=== PATIENT | male | born 1935 | race Caucasian/White ===

== ENCOUNTER 2017-02-22 08:50 | Emergency (ER) | payer BC ==
--- NOTE | ~2017-02-22 | CR72 ---
[facility] A Service of [facility] RADIOLOGY TEXT RESULTS PATIENT: SOLE EUGENE LOCATION: [facility] : 33 UNIT #: [id number] AGE: [address]: Yvrose Chun MD SEX: M ORDER DR: [id number] [facility] [address] [place], [place] [address] [id number] MR#: [id number] Acc #: [id number] NAME: SOLE EUGENE : 1935 SEX: M STUDY DATE/TIME: 02/22/2017 8:34 UNIT: [facility] ROOM: STUDY DESCRIPTION: CR Chest Single View Portable Attending Physician: Yvrose Chun M.D. Ordering Physician: Yvrose Chun M.D. Primary Care Physician: Josue Pringle M.D. MEDICAL IMAGING REPORT This report is preliminary unless electronic signature is present EXAM Portable chest 02/22/2017 HISTORY Fall. Pain low left rib. FINDINGS AP radiographs of chest presented. Comparison 09/18/2016. Cervical spine fixation hardware unchanged in visualized extent. Grossly intact. Degenerative changes in spine. Contour irregularity anterolateral right fourth rib. Not clearly present on prior examination. This may represent a rib fracture. It is of unclear chronicity. I would favor healed rib fracture. Correlate with mechanism of patient's injury and location of patient pain. If it would assist in management, right rib series could be pursued for further assessment. No other potential acute bony abnormality is seen. The heart is mildly enlarged. Thoracic aorta is tortuous. Lungs are well inflated. Linear atelectasis at the left lung base. Slight blunting left lateral costophrenic sulcus could be a reflection of mild atelectasis or trace effusion. There is no sizable effusion. Apical pleural thickening stable. Dictated by... Дмитрий Sapp M.D. THIS IS AN ELECTRONICALLY VERIFIED REPORT Дмитрий Sapp M.D. at 02/23/2017 1:54 PM GILLIAN/isaiah TD: 02/22/2017 11:00 [facility] A Service of [facility] & [facility] RADIOLOGY TEXT RESULTS PATIENT: SOLE EUGENE LOCATION: [facility] #: [id number] : 33 UNIT #: [id number] AGE: [address]: Yvrose Chun MD SEX: M ORDER DR: JOB #: [id number] MEDICAL IMAGING REPORT Page 1 of 1 COPY
[~2017-02-22 08:50] MED LIST: ACTONEL150 MG PO; DITROPAN PO; DITROPAN X10 MG/BOTT PO; METANX TABLET1 TAB PO; MILK THISTLE500 MG PO; MIRAPEX PO; MIRAPEX0.25 MG PO; MIRTAZAPINE30 MG PO; MONTELUKAST SOD10 MG PO; MULTI-DAY VITAM1 TAB PO; NEURONTIN100 MG PO; PLAVIX PO; TOPROL XL 50 MG50 MG PO; VICODIN 5-3001 EACH PO; VITAL-D RX TABL1 TAB; VITAMIN B12-FO1 EACH PO; VITAMIN B650 M1 PO; VITAMIN D32000 UNI1 PO; ZOLOFT50 MG PO
[2017-02-22 09:28] LABS: BASOPHIL% 0.3 % (0-2.5); EOSINOPHIL# 0.1 X10e3 (0-0.7); EOSINOPHIL% 2.2 % (0.0-7.0); HEMOGLOBIN 12.8 gm/dL (13.0-16.0); LYMPHOCYTE% 15.2 % (17.0-45.0); MEAN CELL VOLUME 88.9 FL (83-96); MEAN CORPUSCULAR HEMOGLOBIN 29.1 PG (28-34); MEAN CORPUSCULAR HGB CONC 32.7 g/dL (30-36); MEAN PLATELET VOLUME 7.9 FL (6.5-11.5); MONOCYTE# 0.5 X10e3 (0-1.0); MONOCYTE% 7.7 % (3.0-12.0); NEUTROPHIL# 4.9 X10e3 (1.5-7.1); NEUTROPHIL% 74.6 % (40-75); PLATELET COUNT 119 X10e3 (140-420); RED BLOOD COUNT 4.38 X10e (3.90-5.60); RED CELL DISTRIBUTION WIDTH 15.9 % (11.0-15.5); WHITE BLOOD COUNT 6.6 X10e3 (4.0-10.5)
[2017-02-22 09:30] LABS: DIFF IND NO
[2017-02-22 10:08] LABS: ALBUMIN SERUM 3.5 g/dL (3.5-5.0); BILIRUBIN, DIRECT 0.1 mg/dL (0.0-0.2); BILIRUBIN,INDIRECT 0.4 mg/dL (0.0-0.9); BILIRUBIN,TOTAL 0.5 mg/dL (0.2-2.0); CALCIUM SERUM 8.8 mg/dL (8.4-10.2); CREATININE SERUM 0.8 mg/dL (0.6-1.4); GLOM FILT RATE Estimated 82.6 mL/min (>60); POTASSIUM 3.7 mmol/L (3.5-5.1); PROTEIN TOTAL SERUM 6.5 g/dL (6.0-8.3)
[2017-02-22 10:40] LABS: URINE SOURCE CLEAN CATCH
[2017-02-22 10:49] LABS: URINE APPEARANCE CLEAR; URINE BILIRUBIN NEG (NEG); URINE BLOOD TRACE (NEG); URINE COLOR YELLOW; URINE GLUCOSE NEG (NEG); URINE KETONE NEG (NEG); URINE LEUKOCYTE ESTERASE 2+ (NEG); URINE NITRATE NEG (NEG); URINE PROTEIN NEG (NEG); URINE SPECIFIC GRAVITY 1.019 (1.003-1.035); URINE UROBILINOGEN 0.2 MG/DL (NEG)
[2017-02-22 10:50] LABS: CULTURE INDICATED? YES; URINE BACTERIA AUWI NEG (NEGATIVE); URINE SQUAMOUS EPITHELIAL CELL OCC /[HPF]
[2017-02-22 11:05] LABS: URINE MUCUS PRESENT; URINE YEAST PRESENT
== END 2017-02-22 12:40 | disposition home or self-care (01) ==
LOC: CED 08:50
PROVIDERS: Emergency Medicine
DX: S20.212A Contusion of left front wall of thorax, initial encounter (principal); J18.9 Pneumonia, unspecified organism; N39.0 Urinary tract infection, site not specified; I10 Essential (primary) hypertension; K21.9 Gastro-esophageal reflux disease without esophagitis; Z98.890 Other specified postprocedural states; W01.198A Fall on same level from slipping, tripping and stumbling with subsequent striking against other object, initial encounter; Y92.9 Unspecified place or not applicable
CPT/HCPCS: 71010; 80048; 80076; 81003; 85025; 87086; 94010; 96372; 99283; J0696

== ENCOUNTER 2017-02-25 21:25 | Inpatient (IN) | payer OTHER ==
--- NOTE | ~2017-02-25 | CT15 ---
[facility] A Service of [facility] RADIOLOGY TEXT RESULTS PATIENT: SOLE EUGENE LOCATION: [facility] 577-01 : 33 UNIT #: [id number] AGE: [address]: Annabelle Whittaker MD SEX: M ORDER DR: [id number] [facility] [address] [place], [place] [address] [id number] I MR#: [id number] Acc #: [id number] NAME: SOLE EUGENE : 1935 SEX: M STUDY DATE/TIME: 02/26/2017 1:05 UNIT: C[facility]OF ROOM: 51050 STUDY DESCRIPTION: CT Angio Chest Attending Physician: Palak Leslie M.D. Ordering Physician: Palak Leslie M.D. Primary Care Physician: Josue Pringle M.D. MEDICAL IMAGING REPORT This report is preliminary unless electronic signature is present EXAM CTA chest PE protocol, 02/26/2017 INDICATION Cough and shortness of air for the past 4 days. PROCEDURE Contrast-enhanced CTA of the chest, attention on opacification of the pulmonary arteries. Coronal 3-D MIP sagittal reformatted images reconstructed AND submitted. 100 mL of Isovue-370. This CT exam was performed with one or more of the following radiation dose reduction techniques: automatic exposure control, adjustment of mA and/or kV according to patient size, and iterative reconstruction. COMPARISON 05/20/2014 FINDINGS No evidence for pulmonary embolus. No evidence for acute aortic injury. No adenopathy. Small amount of atelectasis in the left lung base and lingula. No dense consolidation. No acute findings in the included upper abdomen. There are nondisplaced fractures of the lateral left fifth, sixth, seventh, and eighth ribs. IMPRESSION 1. No evidence for pulmonary embolus. 2. Nondisplaced fractures of the left fifth, sixth, seventh, and eighth ribs along the lateral left chest. Dictated by... [facility] A Service of [facility] RADIOLOGY TEXT RESULTS PATIENT: SOLE EUGENE LOCATION: [facility] 577-01 : 33 UNIT #: [id number] AGE: [address]: Annabelle Whittaker MD SEX: M ORDER DR: Haseeb Rooney M.D. THIS IS AN ELECTRONICALLY VERIFIED REPORT Haseeb Rooney M.D. at 02/26/2017 10:14 PM JUANITA/saleem TD: 02/26/2017 04:17 JOB #: [id number] MEDICAL IMAGING REPORT Page 1 of 1 COPY
--- NOTE | ~2017-02-25 | EKG ---
PATIENT: SOLE EUGENE UNIT #: [id number] Ventricular Rate: 60 BPM Atrial Rate: 60 BPM P-R Interval: 198 ms QRS Duration: 96 ms Q-T Interval: 386 ms QTC Calculation(Bezet): 386 ms P Nerinx: 24 degrees Calculated R Nerinx: 53 degrees Calculated T Nerinx: 51 degrees Diagnosis Line: Normal sinus rhythm Diagnosis Line: Normal ECG Diagnosis Line: When compared with ECG of 14-JUN-2016 17:12, Diagnosis Line: No significant change was found Diagnosis Line: Confirmed by NISHA NG MD ([id number]) on 02/26/2017 Diagnosis Line: 11:24:10 PM INTERPRETING MD: BERENICE UREÑA
--- NOTE | ~2017-02-25 | DS ---
Unit #: [id number] #: [id number] Patient: SOLE TRINIDAD 203023 [address] [place], [place] [address] [id number] I MR#: [id number] NAME: SOLE TRINIDAD ROOM: 577 Age: 81 Sex: M Admission Date: 02/26/2017 : 1935 Discharge Date: 02/26/2017 Attending Physician: Annabelle Whittaker M.D. Primary Care Physician: Josue Pringle M.D. DISCHARGE SUMMARY PRINCIPAL DIAGNOSES 1. Nondisplaced left 5th, 6th, 7th and 8th rib fractures. 2. Dyspnea on exertion secondary to number 1. 3. Mild thrombocytopenia. Discharge platelet count 134,000. 4. Recent fall. 5. Hypertension. 6. Hypothyroidism. 7. Bladder cancer status post fulguration. 8. Restless leg syndrome. 9. Urge incontinence. 10. Mild chronic obstructive pulmonary disease. 11. Hypothyroidism. CONSULTANTS None. DIAGNOSTIC STUDIES IMAGING: CT angiogram of the chest on February 26, 2017, which was negative for PE. Nondisplaced fractures of left 5th, 6th, 7th and 8th ribs noted. Chest x-ray on February 25, 2017 with changes of COPD. CLINICAL HISTORY AND HOSPITAL COURSE Mr. Trinidad is an extremely nice 81-year-old male who presented to the emergency department with some progressive dyspnea on exertion, worse over the last week. Patient received antibiotics as an outpatient without improvement. In the emergency department chest x-ray was concerning for COPD, but lab work was otherwise completely unremarkable including a normal BNP and no leukocytosis. The patient did not have any fever. He was admitted for further evaluation. The patient underwent CT angiogram of the chest following admission. This was negative for PE but did reveal multiple left-sided rib fractures. The patient had recently fallen on his left side while helping his change the bed at home. He denies much dyspnea on exertion following admission and states pain is controlled. He has not had any hypoxia. As noted above, BNP was also normal. The patient is followed by Dr. Varner of cardiology as an outpatient and recently saw him 6 weeks ago and had a negative workup. He has had a recent echo, which was also unremarkable. I think the patient is clinically stable and can be discharged home with pain medication and close followup. DISCHARGE CONDITION Stable. Unit #: [id number] #: [id number] Patient: SOLE TRINIDAD DISCHARGE STATUS Discharge to home. DISCHARGE MEDICATIONS 1. Mirapex 1 mg p.o. at bedtime. 2. Restoril 15 mg p.o. q.h.s. p.r.n. insomnia. 3. Norvasc 2.5 mg daily. 4. Metoprolol succinate 25 mg daily. 5. Ditropan 10 mg daily. 6. Milk thistle 1,000 mg daily. 7. Aspirin 81 mg daily. 8. [place] 5/325 mg 2 tablets p.o. q.6 hours p.r.n. pain. 9. Doxycycline 100 mg p.o. daily. 10. Levothyroxine 50 mcg p.o. daily. 11. Vitamin B12/folic acid tablet 500 mcg p.o. daily. DISCHARGE INSTRUCTIONS Patient instructed to follow a heart healthy diet. He can increase his activity as tolerated. FOLLOW-UP Patient will follow up with his primary care physician, Dr. Pringle, in approximately 1 week. Dictated by... Annabelle Whittaker M.D. ERICH/dina TD: 02/27/2017 12:29 JOB #: [id number] DISCHARGE SUMMARY Page 1 of 1 X Annabelle Whittaker MD X DISCHARGE SUMMARY
--- NOTE | ~2017-02-25 | HP ---
Unit #: [id number] #: [id number] Patient: SOLE EUGENE [id number] [address] [place], [place] [address] [id number] I MR#: [id number] NAME: SOLE EUGENE ROOM: 06621 Age: 81 Sex: M Admission Date: 02/26/2017 : 1935 Attending Physician: Palak Leslie M.D. Primary Care Physician: Josue Pringle M.D. HISTORY AND PHYSICAL CHIEF COMPLAINT Dyspnea on exertion. HISTORY This pleasant 81-year-old male with hypertension, hypothyroidism, is admitted for dyspnea on exertion. The patient began to note dyspnea on exertion about a year ago, with mild pedal edema. A week ago fell while helping his make the bed onto his left side. Developed pain, left lower ribs, and presented to this emergency department four to five days ago. An x-ray did not show a definite acute rib fracture. Heart was mildly enlarged. Atelectasis noted at the left base. The patient was given Omnicef for possible pneumonia. He, however, denies fever, sweats, chills or much of a cough with the above. He continued with dyspnea on exertion and was told by his primary care physician to be re-evaluated in the ER. He denies chest discomfort with the above. Again, his shortness of breath is with exertion and he denies any other symptoms with the shortness of breath. PAST MEDICAL HISTORY 1. History of gastritis on EGD and duodenitis. 2. Hypothyroidism. 3. Hepatitis C. 4. Bladder cancer, status post fulguration and intravesicular chemotherapy. 5. Essential hypertension. 6. History of MRSA. 7. Extensive C-spine surgery at [facility] in September from myelopathy. 8. Eye surgery. 9. Negative colonoscopy 04/2012. ALLERGIES Penicillin. HOME MEDICATIONS 1. Toprol XL 25 mg daily. 2. Mirapex 1 mg q. h.s. 3. Synthroid 0.05 mg daily. 4. Doxycycline 100 mg daily. 5. Ditropan XL 10 mg daily. 6. Milk thistle 1000 mg daily. 7. Vitamin B12 500 mcg daily. 8. Restoril 15 mg q. h.s. p.r.n. 9. Norvasc 2.5 mg daily. Unit #: [id number] #: [id number] Patient: SOLE EUGENE 10. Aspirin 81 mg daily. 11. Omnicef 300 mg b.i.d. The patient just finished a course of Cipro as well for a urinary tract infection. 12. [place] 5, one to two tablets q.6 hours as needed. 13. Ppwd-ujq-aypuzvz potassium. FAMILY HISTORY Negative for heart or lung disease. SOCIAL HISTORY The patient lives with his and son. He smoked one pack per day of tobacco until 1979 when he stopped smoking. Does not drink alcohol. REVIEW OF SYSTEMS Notable for hypothyroidism, hypertension, gastritis, MRSA, bladder cancer, history of hepatitis C, myelopathy requiring extensive C-spine surgery in September, dyspnea on exertion, pedal edema, above mentioned surgeries. All other systems were reviewed and are otherwise negative. PHYSICAL EXAMINATION GENERAL APPEARANCE: Pleasant, 81-year-old, young appearing male, currently in no acute distress. VITAL SIGNS: Temperature 98.1, pulse 80, respirations 16, blood pressure 141/77. O2 saturation is 96% on room air. HEENT: Eyes PERRLA. Extraocular muscles are intact. Pharynx is benign. NECK: Supple without adenopathy or thyromegaly. CHEST: Reveals crackles bilaterally. CARDIAC: Normal S1 and S2 without definite murmur. ABDOMEN: Bowel sounds are present. No hepatosplenomegaly, tenderness or masses. EXTREMITIES: With mild edema. Pedal pulses are present. NEUROLOGIC EXAM: The patient is awake, alert, oriented. Cranial nerves are intact. Equal strength throughout. DIAGNOSTIC STUDIES LABORATORY: Admission labs - hematocrit 38.6, normal white count and platelet count. SMA-12 - glucose 122, BUN 30, creatinine 0.5, alkaline phos. 102. IMAGING: Chest x-ray done several days ago - atelectasis, possible trace effusion on the left. Mild cardiomegaly. Tortuous thoracic aorta. Apical pleural thickening, stable. CARDIOVASCULAR: EKG shows a sinus rhythm, rate 60, normal appearing. ASSESSMENT 1. Dyspnea on exertion of uncertain etiology, present for the past year, perhaps slightly worse: Rule out primary lung disease versus pulmonary embolus versus coronary artery disease. 2. Essential hypertension. 3. Hypothyroidism. 4. Hepatitis C. 5. History of methicillin resistant Staph aureus, on chronic doxycycline. 6. Bladder cancer, status post fulguration. 7. Myelopathy requiring extensive C-spine surgery September 2016 at [facility]. Unit #: [id number] #: [id number] Patient: SOLE EUGENE PLANS 1. Will continue Levaquin which was ordered pending further evaluation. Add Florastor. 2. CTA of the chest. 3. Check BNP and echo. 4. DVT prophylaxis. 5. Possible consultants depending on above results. Dictated by Palak Leslie M.D. AML/df TD: 02/26/2017 05:01 JOB #: [id number] HISTORY AND PHYSICAL Page 1 of 1 X Palak Leslie MD HISTORY AND PHYSICAL
--- NOTE | ~2017-02-25 | CR72 ---
[facility] A Service of [facility] & [facility] RADIOLOGY TEXT RESULTS PATIENT: SOLE EUGENE LOCATION: [place] [address] : 33 UNIT #: [id number] AGE: [address]: Annabelle Whittaker MD SEX: M ORDER DR: [id number] [facility] [address] [place], [place] [address] [id number] I MR#: [id number] Acc #: [id number] NAME: SOLE EUGENE : 1935 SEX: M STUDY DATE/TIME: 02/25/2017 21:05 UNIT: [facility] ROOM: 71002 STUDY DESCRIPTION: CR Chest Single View Portable Attending Physician: Palak Leslie M.D. Ordering Physician: Raul Combs M.D. Primary Care Physician: Josue Pringle M.D. MEDICAL IMAGING REPORT This report is preliminary unless electronic signature is present EXAM Single view chest, 02/25/2017 INDICATION Shortness of air for 4 days. Weakness. FINDINGS Single portable AP view of the chest compared to 02/22/2017. Heart and mediastinal contours are unchanged. There is prominence of the thoracic aorta. No new pulmonary opacities. There is background COPD. IMPRESSION No interval change. Dictated by... David Cloud M.D. THIS IS AN ELECTRONICALLY VERIFIED REPORT David Cloud M.D. at 02/26/2017 2:31 PM TOMY/saleem TD: 02/26/2017 01:24 JOB #: [id number] MEDICAL IMAGING REPORT Page 1 of 1 COPY
[2017-02-25 21:28] LABS: BASOPHIL% 0.4 % (0-2.5); EOSINOPHIL# 0.3 X10e3 (0-0.7); EOSINOPHIL% 4.6 % (0.0-7.0); HEMATOCRIT 38.6 % (38.0-50.0); HEMOGLOBIN 12.6 gm/dL (13.0-16.0); LYMPHOCYTE# 1.3 X10e3 (1.0-3.5); LYMPHOCYTE% 22.9 % (17.0-45.0); MEAN CELL VOLUME 89.3 FL (83-96); MEAN CORPUSCULAR HGB CONC 32.5 g/dL (30-36); MEAN PLATELET VOLUME 7.7 FL (6.5-11.5); MONOCYTE# 0.4 X10e3 (0-1.0); MONOCYTE% 8.1 % (3.0-12.0); NEUTROPHIL# 3.6 X10e3 (1.5-7.1); PLATELET COUNT 142 X10e3 (140-420); RED BLOOD COUNT 4.32 X10e (3.90-5.60); WHITE BLOOD COUNT 5.6 X10e3 (4.0-10.5)
[2017-02-25 21:32] LABS: DIFF IND NO
[2017-02-25 21:51] LABS: POC - CKMB 5.4 ng/mL (0.0-7.9); POC - TROPONIN <0.05 ng/mL (<=0.05)
[2017-02-25 21:56] LABS: ALBUMIN SERUM 3.8 g/dL (3.5-5.0); BILIRUBIN, DIRECT 0.1 mg/dL (0.0-0.2); BILIRUBIN,INDIRECT 0.5 mg/dL (0.0-0.9); BILIRUBIN,TOTAL 0.6 mg/dL (0.2-2.0); CALCIUM SERUM 8.8 mg/dL (8.4-10.2); CREATININE SERUM 0.5 mg/dL (0.6-1.4); GLOM FILT RATE Estimated 100.3 mL/min (>60); POTASSIUM 4.1 mmol/L (3.5-5.1)
[2017-02-25] MEDS ORDERED: METOPROLOL SUCC25 MG PO (23:19)
[2017-02-25] MEDS ORDERED: MIRAPEX1 MG PO (23:20)
[2017-02-25] MEDS ORDERED: UNITHROID50 MCG PO (23:20)
[2017-02-25] MEDS ORDERED: DOXYCYCLINE HY100 M3 PO (23:21)
[2017-02-25] MEDS ORDERED: DITROPAN XL PO (23:21)
[2017-02-25] MEDS ORDERED: MILK THISTLE500 MG PO (23:46)
[2017-02-25] MEDS ORDERED: RESTORIL15 MG PO (23:47)
[2017-02-25] MEDS ORDERED: VITAMIN B12-FO1 EACH (23:47)
[2017-02-25] MEDS ORDERED: NORVASC2.5 MG PO (23:48)
[2017-02-25] MEDS ORDERED: CHEWABLE ASPIRI81 MG PO (23:48)
[2017-02-25] MEDS ORDERED: CEFDINIR300 MG PO (23:50)
[2017-02-25] MEDS ORDERED: HYDROCODONE-A1 UDTA3 PO (23:50)
[2017-02-25] MEDS ORDERED: CIPRO PO (23:51)
[2017-02-25] MEDS ORDERED: POTASSIUM99 M2 PO (23:53)
[2017-02-26 06:00] LABS: BASOPHIL% 0.4 % (0-2.5); EOSINOPHIL# 0.2 X10e3 (0-0.7); EOSINOPHIL% 3.8 % (0.0-7.0); HEMATOCRIT 39.2 % (38.0-50.0); HEMOGLOBIN 12.8 gm/dL (13.0-16.0); LYMPHOCYTE# 1.2 X10e3 (1.0-3.5); LYMPHOCYTE% 18.7 % (17.0-45.0); MEAN CELL VOLUME 89.2 FL (83-96); MEAN CORPUSCULAR HEMOGLOBIN 29.3 PG (28-34); MEAN CORPUSCULAR HGB CONC 32.8 g/dL (30-36); MEAN PLATELET VOLUME 7.9 FL (6.5-11.5); MONOCYTE# 0.5 X10e3 (0-1.0); MONOCYTE% 7.7 % (3.0-12.0); NEUTROPHIL# 4.4 X10e3 (1.5-7.1); NEUTROPHIL% 69.4 % (40-75); PLATELET COUNT 134 X10e3 (140-420); RED BLOOD COUNT 4.39 X10e (3.90-5.60); RED CELL DISTRIBUTION WIDTH 15.9 % (11.0-15.5); WHITE BLOOD COUNT 6.3 X10e3 (4.0-10.5)
[2017-02-26 06:05] LABS: DIFF IND NO
[2017-02-26 06:30] LABS: INR 1.1; PARTIAL THROMBOPLASTIN TIME 34.5 SECONDS (23.5-31.3); PROTHROMBIN TIME (PATIENT) 11.9 SECONDS (9.6-11.5)
[2017-02-26 06:50] LABS: CALCIUM SERUM 8.8 mg/dL (8.4-10.2); CREATININE SERUM 0.5 mg/dL (0.6-1.4); GLOM FILT RATE Estimated 100.3 mL/min (>60); POTASSIUM 4.1 mmol/L (3.5-5.1)
== END 2017-02-26 16:08 | disposition home or self-care (01) | DRG 184 ==
LOC: CED 21:25 → CEDOF 02-26 00:15 → C5C 02-26 09:10
PROVIDERS: Emergency Medicine; Internal Medicine
PROC: B32TYZZ Computerized Tomography (CT Scan) of Left Pulmonary Artery using Other Contrast (ICD-10-PCS; principal; 2017-02-26)
PROC: B32SYZZ Computerized Tomography (CT Scan) of Right Pulmonary Artery using Other Contrast (ICD-10-PCS; 2017-02-26)
DX: S22.42XA Multiple fractures of ribs, left side, initial encounter for closed fracture (principal); G95.89 Other specified diseases of spinal cord; D69.6 Thrombocytopenia, unspecified; R06.00 Dyspnea, unspecified; J44.9 Chronic obstructive pulmonary disease, unspecified; W19.XXXA Unspecified fall, initial encounter; I10 Essential (primary) hypertension; E03.9 Hypothyroidism, unspecified; Z85.51 Personal history of malignant neoplasm of bladder; G25.81 Restless legs syndrome; N39.41 Urge incontinence; B19.20 Unspecified viral hepatitis C without hepatic coma; Z86.14 Personal history of Methicillin resistant Staphylococcus aureus infection; Z88.0 Allergy status to penicillin; Z79.82 Long term (current) use of aspirin
CPT/HCPCS: 36415; 71010; 71275; 80048; 80076; 82553; 83880; 84484; 85025; 85610; 85730; 87040; 93005; 94010; 96365; 99285; J1956; Q9967

== ENCOUNTER → 2017-03-15 | Outpatient (CLI) | payer OTHER ==
[~2017-03-15] MED LIST changes: +CEFDINIR300 MG PO; +CHEWABLE ASPIRI81 MG PO; +CIPRO PO; +DITROPAN XL PO; +DOXYCYCLINE HY100 M3 PO; +HYDROCODONE-A1 UDTA3 PO; +METOPROLOL SUCC25 MG PO; +MIRAPEX1 MG PO; +NORVASC2.5 MG PO; +POTASSIUM99 M2 PO; +RESTORIL15 MG PO; +UNITHROID50 MCG PO; +VITAMIN B12-FO1 EACH
--- NOTE | ~2017-03-15 | MR84 ---
[facility] A Service of [facility] & [facility] RADIOLOGY TEXT RESULTS PATIENT: SOLE EUGENE LOCATION: [facility] : 33 UNIT #: [id number] AGE: [address]: Bk Corrales IV, MD SEX: M ORDER DR: [id number] [place] [id number] O MR#: [id number] Acc #: [id number] NAME: SOLE EUGENE : 1935 SEX: M STUDY DATE/TIME: 03/15/2017 14:41 UNIT: [facility] ROOM: STUDY DESCRIPTION: MR Hip Wo Contrast Rt Attending Physician: Bk Corrales M.D. Referring Physician: Bk Corrales M.D. Ordering Physician: Bk Corrales M.D. Primary Care Physician: Josue Pringle M.D. MRI CENTER REPORT This report is preliminary unless electronic signature is present. EXAM MRI pelvis and hips 03/15/2017 COMPARISON Pelvis radiograph 01/22/2017, and right hip radiographs 07/16/2015. 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 History sheet states increasing right hip pain with some instability. Limited range of motion. Recent fall 1 month ago. Remote history of falls. History of spine pain/surgery. Bladder tumor. TURP. FINDINGS The hips demonstrate no fracture, effusion, or avascular necrosis. There is right greater than left mild hip arthrosis with joint space narrowing and subtle evidence of chondromalacia. No sizeable loose bodies are noted. The iliofemoral ligaments and anterior capsules bilaterally appear somewhat prominent in thickness without inflammation. This is nonspecific, could be secondary capsuloligamentous thickening/fibrosis. Appearance is not suggestive of pigmented villonodular synovitis. Chronic fibrotic capsulitis could be considered. Gluteal tendons are intact. The bony pelvis, sacrum, and SI joints are unremarkable. There is no evidence of a marrow lesion or metastatic disease in this patient with a history of bladder cancer. There is no lymphadenopathy identified. [facility] A Service of [facility] RADIOLOGY TEXT RESULTS PATIENT: SOLE EUGENE LOCATION: [facility] : 33 UNIT #: [id number] AGE: [address]: Bk Corrales IV, MD SEX: M ORDER DR: Bladder diverticula are present. Postoperative changes suggestive of transurethral resection of the prostate as reported clinically are noted. There is fat of the left inguinal canal. IMPRESSION 1. Mild bilateral hip arthrosis slightly greater on the right without an effusion, fracture, or avascular necrosis. There does appear be low signal thickening of the hip joint capsules bilaterally (predominating anteriorly iliofemoral ligament/capsular complex). Findings could reflect chronic capsulitis/fibrosis. The appearance is not suggestive of pigmented villonodular synovitis. 2. Musculoskeletal pelvis and hips are, otherwise, unremarkable. 3. Numerous bladder diverticula. Postoperative morphology suggestive of TURP. 4. No evidence of metastatic disease or lymphadenopathy. 5. Not mentioned above is lower lumbar degenerative disc disease and facet arthrosis. Dictated by... Rebecca Ruiz M.D. THIS IS AN ELECTRONICALLY VERIFIED REPORT Rebecca Ruiz M.D. at 03/18/2017 11:42 AM MIREILLE/travis TD: 03/18/2017 10:45 JOB #: [id number] MRI CENTER REPORT Page 1 of 1
== END | disposition home or self-care (01) ==
LOC: SMRI 14:04
DX: M25.551 Pain in right hip (principal); M87.9 Osteonecrosis, unspecified; M25.651 Stiffness of right hip, not elsewhere classified; M25.351 Other instability, right hip; M16.0 Bilateral primary osteoarthritis of hip; N32.3 Diverticulum of bladder; M51.36 Other intervertebral disc degeneration, lumbar region
CPT/HCPCS: 73721

== ENCOUNTER → 2017-06-11 | Outpatient (CLI) | payer OTHER ==
--- NOTE | ~2017-06-11 | MR112 ---
[facility] A Service of [facility] & [facility] RADIOLOGY TEXT RESULTS PATIENT: SOLE EUGENE LOCATION: [facility] : 33 UNIT #: [id number] AGE: [address]: Bk Corrales IV, MD SEX: M ORDER DR: [id number] [address] [address] [id number] O MR#: [id number] Acc #: [id number] NAME: SOLE EUGENE : 1935 SEX: M STUDY DATE/TIME: 06/11/2017 13:10 UNIT: [facility] ROOM: STUDY DESCRIPTION: MR Lumbar WWo Contrast Attending Physician: Bk Corrales M.D. Referring Physician: Bk Corrales M.D. Ordering Physician: Bk Corrales M.D. Primary Care Physician: Josue Pringle M.D. MRI CENTER REPORT This report is preliminary unless electronic signature is present. EXAM MRI lumbar spine without HISTORY Low back pain in an 82-year-old male patient with a history of prior lumbar spine surgery. The patient has no new trauma but complains of increasing low back pain, bilateral lower extremity weakness, worse in the past 4 months. Surgery was performed in 2007. No cancer history indicated. TECHNIQUE MRI lumbar spine performed prior to and following intravenous administration of 17 mL of MultiHance on a 1.5T wide bore system. COMPARISON [facility] [place] [facility] 07/23/2016. I do not have access to their report. FINDINGS Sagittal alignment is normal. For the purpose of this study I will number the spine assuming that the lowest axial imaging was obtained through the L5-S1 intervertebral disc. Using this numbering, the L5-S1 intervertebral disc is mildly hypoplastic and L5 is transitional and partially sacralized. Conus medullaris therefore terminates at T12 and is partially excluded from field of view but normal in appearance otherwise. Intervertebral discs are mildly desiccated in general. Bone marrow signal intensity is unremarkable allowing for minor marrow endplate degenerative change and there is an anterior plate spondylosis most apparent at T12-L1 and L1-2. At T12-L1, there is mild bilateral facet degenerative change. There is minimal posterior disc bulging but no canal stenosis. Only mild left foraminal impingement. [facility] A Service of [facility] RADIOLOGY TEXT RESULTS PATIENT: SOLE EUGENE LOCATION: [facility] : 33 UNIT #: [id number] AGE: [address]: Bk Corrales IV, MD SEX: M ORDER DR: At L1-2, there is moderate facet degenerative change bilaterally. There has been a posterior decompression surgery with resection of spinous process and portions of the medial lamina. There is anterior disc extrusion but there is no posterior disc protrusion or extrusion and there is no canal stenosis. There is mild foraminal narrowing worse to the right, predominately due to the facet arthritis. At L2-3, there is moderate facet degenerative change bilaterally with evidence of prior posterior decompression with resection of spinous process and portions of the medial lamina. There is only a minor concentric disc bulge more prominent into the inferior foramina. There is no central canal stenosis and no disc extrusion. There is likx-bm-yzuwazkt left and mild right inferior foraminal narrowing. At L3-4 there is moderate facet degenerative change bilaterally. There has been resection of spinous process and portions of the medial lamina. There is a minor concentric disc bulge. There is no canal stenosis. There is moderate left and lgjpxkma-ge-whzuyw right-sided foraminal narrowing. At L4-5, there has been posterior decompression, resection spinous process and portions of the medial lamina. There is txywceac-ij-nemjcm facet degenerative change with some ligamentum flavum thickening on the left side remaining. This results in mild focal mass effect on the left lateral recess. There is no central canal stenosis. There is moderate to severe left and moderate right-sided foraminal narrowing. L5-S1, mild bilateral facet degenerative change left greater than right. No canal stenosis and no foraminal impingement. There is some partially demonstrated arthritis in the sacroiliac joints. Some posterior paraspinous musculature atrophy noted especially at midline at postoperative levels. Partly seen is a probable right renal cyst. Following contrast administration, there is no pathologic intracanalicular enhancement. There is no convincing evidence for arachnoiditis. No recurrent disc extrusion is seen at the postoperative levels. IMPRESSION 1. For the purpose of this study, the spine is numbered assuming that the L5-S1 intervertebral disc is mildly hypoplastic and L5 is transitional and partially sacralized. I do not have comparison plain films for more accurate numbering. 2. Redemonstrated are postoperative changes posteriorly L1-2, L2-3, L3-4, and L4-5 consistent with posterior decompression. These changes are present on the outside study from 2016. There is nothing to suggest recurrent extrusion or canal stenosis at the postoperative levels. There is no evidence for lumbar canal stenosis. There is some foraminal impingement with details [facility] Service of [facility] & [facility] RADIOLOGY TEXT RESULTS PATIENT: SOLE EUGENE LOCATION: [facility] : 33 UNIT #: [id number] AGE: [address]: Bk Corrales IV, MD SEX: M ORDER DR: provided above as well as multilevel facet arthritis. Facet arthrosis most prominent at the L4-5 level. Nothing to suggest arachnoiditis or drainable fluid collection. Alignment is normal. See full description of findings above. 1. Dictated by... Ioana Wallace M.D. THIS IS AN ELECTRONICALLY VERIFIED REPORT Ioana Wallace M.D. at 06/13/2017 7:23 AM SAC/to TD: 06/12/2017 17:27 JOB #: [id number] MRI CENTER REPORT Page 1 of 1
[2017-06-11 13:03] LABS: HEMATOCRIT 39.2 % (38.0-50.0); HEMOGLOBIN 13.5 gm/dL (13.0-16.0); MEAN CELL VOLUME 92.6 FL (83-96); MEAN CORPUSCULAR HEMOGLOBIN 31.8 PG (28-34); MEAN CORPUSCULAR HGB CONC 34.3 g/dL (30-36); MEAN PLATELET VOLUME 7.5 FL (6.5-11.5); RED BLOOD COUNT 4.23 X10e (3.90-5.60); RED CELL DISTRIBUTION WIDTH 15.4 % (11.0-15.5); WHITE BLOOD COUNT 5.8 X10e3 (4.0-10.5)
[2017-06-11 13:25] LABS: ALBUMIN SERUM 3.8 g/dL (3.5-5.0); BILIRUBIN,TOTAL 0.3 mg/dL (0.2-2.0); BUN/CREATININE RATIO 18.88; CALCIUM SERUM 8.6 mg/dL (8.4-10.2); CREATININE SERUM 0.9 mg/dL (0.6-1.4); GLOM FILT RATE Estimated 78.2 mL/min (>60); PROTEIN TOTAL SERUM 6.7 g/dL (6.0-8.3)
[2017-06-11 14:35] LABS: POC - CREATININE 0.86 mg/dL (0.64-1.27); POC - GFR >60.0 mL/min (>60)
== END | disposition home or self-care (01) ==
LOC: SMRI 12:33
PROVIDERS: Family Medicine Sports Medicine
DX: M54.5 Low back pain (principal); Z00.00 Encounter for general adult medical examination without abnormal findings; R29.898 Other symptoms and signs involving the musculoskeletal system; M46.96 Unspecified inflammatory spondylopathy, lumbar region; M47.895 Other spondylosis, thoracolumbar region; M47.896 Other spondylosis, lumbar region; M51.26 Other intervertebral disc displacement, lumbar region; M99.83 Other biomechanical lesions of lumbar region; M47.898 Other spondylosis, sacral and sacrococcygeal region; M47.897 Other spondylosis, lumbosacral region; M43.27 Fusion of spine, lumbosacral region
CPT/HCPCS: 36415; 72158; 80053; 82565; 85027; A9581